=== PATIENT | male | born 1985 | race Caucasian/White ===

== ENCOUNTER 2018-06-06 20:32 | Emergency (ER) | payer MEDICAID | END 2018-06-06 20:50 | disposition left against medical advice (07) | LOC: SED 20:32 | DX: J02.9 Acute pharyngitis, unspecified (principal); R05 Cough; M54.9 Dorsalgia, unspecified; Z53.21 Procedure and treatment not carried out due to patient leaving prior to being seen by health care provider ==

== ENCOUNTER 2021-04-02 11:20 | Emergency (ER) | payer BC, SELFPAY ==
[~2021-04-02] VITALS: Ht 182.9 cm; Wt 108.9 kg
[2021-04-02 11:35] VITALS: BP_SYST 149
--- NOTE | 2021-04-02 11:35 | NUR ---
Pt. came in with S.O. c/o SPENCE, body aches, sore throat, and SOB since yesterday, took 2 home covid test both were positive came into for confirmation
--- NOTE | 2021-04-02 12:05 | NUR ---
ER in tent to exam patient.
--- NOTE | 2021-04-02 12:54 | NUR ---
rapid covid swab sent per pt. request
--- NOTE | 2021-04-02 13:39 | NUR ---
Patient given written and verbal discharge instructions and verbalizes understanding. ER Dr. Ritchie discussed with patient the results and treatment provided. Patient in stable condition. ID arm band removed. Patient educated on pain management and to follow up with PMD. Pain Scale 5-6, denies need for pain med. "dont like taking meds". Opportunity for questions provided and answered.
[2021-04-02 13:42] VITALS: BP_SYST 152
== END 2021-04-02 13:39 | disposition home or self-care (01) ==
LOC: SED 11:20
DX: U07.1 COVID-19 (principal); J02.9 Acute pharyngitis, unspecified
CPT/HCPCS: 87426; 99283; U0003; 36415